=== PATIENT | male | born 1955 | race Caucasian/White ===

== ENCOUNTER 2024-07-28 18:35 | Emergency (ER) | payer MEDICARE, OTHER ==
[2024-07-28 18:58] VITALS: TEMP 97.3
--- NOTE | 2024-07-28 19:10 | ERPHSYRPT ---
- History of Present Illness Patient Subjective Stated Complaint: C/O "how I usually feel when I need a blood transfusion." Indicates he is having periods of SOB with exertion and generalized malaise. Triage Nursing Assessment: Patient brought back to ER in a W/C. He is alert and oriented. Able to transfer self from chair to bed. No SOB; speaking in full sentences. No cough. Patient is pale. Some edema present to BLE. Finger on right hand wrapped; indicates he had surgery on it earlier in the week. Physician History: Patient has a history of anemia requiring frequent transfusions. He has chronic leukemia. He says that he has been fatigued today. He got some chest pain whenever he was exerting himself. He walked about 30 feet and back so that his chest felt tight for about 10 minutes after that. It resolved. He got short of breath with that to. He says that this is not unusual for him when he gets anemic. There is been no obvious external blood loss from GI or other sources. Allergies/Adverse Reactions: doxycycline Allergy (Verified 07/28/24 18:46) hydroxychloroquine sulfate [From Plaquenil] Allergy (Verified 07/28/24 18:46) metoprolol succinate [From Toprol XL] Allergy (Verified 07/28/24 18:46) procaine Allergy (Verified 07/28/24 18:46) procaine HCl [From Novocain] Allergy (Verified 07/28/24 18:46) venom-honey bee [bee venom (honey bee)] Allergy (Verified 07/28/24 18:46) warfarin sodium [From Coumadin] Allergy (Verified 07/28/24 18:46) Hx Tetanus, Diphtheria Vaccination/Date Given: Yes Hx Influenza Vaccination/Date Given: Yes Hx Pneumococcal Vaccination/Date Given: Yes Immunizations Up to Date: Yes Travel Risk - International Travel Have you traveled outside of the country in past 3 weeks: No - Emerging Infectious Disease Are you exhibiting symptoms associated with any current EIDs: No - Review of Systems Constitutional: No Symptoms Eyes: No Symptoms Ears, Nose, & Throat: No Symptoms Respiratory: No Symptoms Cardiac: Chest Pain Abdominal/Gastrointestinal: No Symptoms Skin: No Symptoms - Past Medical History Pertinent Past Medical History: Yes Cardiac History: Arrhythmia Respiratory History: Sleep Apnea Musculoskeletal History: Fractures, Rheumatoid Arthritis GI Medical History: Diverticulitis Other Medical History: 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/hematology from [facility] (Ludivina Grover NP), Multiple compression fractures, Anemia with multiple blood tranfusions - Past Surgical History Past Surgical History: Yes Gastrointestinal: Appendectomy, Hernia Repair Musculoskeletal: Orthopedic Surgery Other Surgical History: triple arthrodesis left foot, both wrists fused, elbow and left ankle, removal of scar tissue from hernia repair - Social History Smoking Status: Never smoker Exposure to second hand smoke: No Drug Use: none Patient Lives Alone: Yes - Social Determinants of Health Will the patient participate in the screening: Yes Do you worry about a steady place to live?: No Do you have any problems with any of the following?: No known problems In the past 12 months,have you had to go without utilities?: No Transportation Issues: No Has anyone in your support network made you feel unsafe?: No Have you or anyone in your house had to go without enough: No - Nursing Vital Signs Nursing Vital Signs: Initial Vital Signs Temperature 97.3 F 07/28/24 18:40 Pulse Rate 107 H 07/28/24 18:40 Respiratory Rate 16 07/28/24 18:40 Blood Pressure 156/87 07/28/24 18:40 O2 Sat by Pulse Oximetry 97 07/28/24 18:40 Pain Scale Pain Intensity 0 - Physical Exam General Appearance: no apparent distress Eye Exam: other (Pale conjunctive a) Respiratory Exam: normal breath sounds Cardiovascular Exam: tachycardia Gastrointestinal/Abdomen Exam: soft, normal bowel sounds Skin Exam: normal color, warm, dry, pale SpO2: 97 - Course Nursing assessment & vital signs reviewed: Yes EKG Interpreted by Me: RATE, Sinus Rhythm Rhythm Strip: Rate Ordered Tests: Active Orders 24 hr Category Date Time Status EKG-ER Only STAT Care 07/28/24 19:04 Active CBC W DIFF Stat Lab 07/28/24 19:15 Completed CMP Stat Lab 07/28/24 19:15 Completed TROPONIN Q4H Lab 07/28/24 19:15 Completed TROPONIN Q4H Lab 07/28/24 23:15 Ordered TROPONIN Q4H Lab 07/29/24 03:15 Ordered Medication Summary Discontinued Medications Generic Name Dose Route Start Last Admin Trade Name Freq PRN Reason Stop Dose Admin Sodium Chloride Confirm 07/28/24 21:03 Sodium Chloride 0.9% 250 Ml Administered 07/28/24 21:04 Dose 250 mls @ ud IV .STK-MED ONE Lab/Rad Data: Laboratory Result Diagrams 07/28/24 19:15 07/28/24 19:15 Laboratory Results 07/28/24 07/28/24 07/28/24 Range/Units 19:15 19:15 19:15 WBC (4.23-9.07) x10^3/uL RBC (4.63-6.08) x10^6/uL Hgb (13.7-17.5) g/dL Hct (40.1-51.0) % MCV (79.0-92.2) fL MCH (25.7-32.2) pg MCHC (32.3-36.5) g/dL RDW (11.6-14.4) % Plt Count (163-337) x10^3/uL MPV (9.4-12.4) fL Gran % (34.0-67.9) % Immature Gran % (Auto) (0.001-0.429) % Nucleat RBC Rel Count (0.00-0.2) % Eos # (Auto) (0.04-0.54) x10^3/uL Immature Gran # (Auto) (0.001-0.031) x10^3u/L Absolute Lymphs (auto) (1.32-3.57) x10^3/uL Absolute Monos (auto) (0.30-0.82) x10^3/uL Absolute Nucleated RBC (0.00-0.012) x10^3u/L Lymphocytes % (21.8-53.1) % Monocytes % (5.3-12.2) % Eosinophils % (0.8-7.0) % Basophils % (0.2-1.2) % Absolute Granulocytes (1.78-5.38) x10^3/uL Basophils # (0.01-0.08) x10^3/uL Sodium (135-145) mmol/L Potassium (3.5-5.1) mmol/L Chloride (98-107) mmol/L Carbon Dioxide (22-30) mmol/L Anion Gap (5-15) MEQ/L BUN (9-20) mg/dL Creatinine (0.66-1.25) mg/dL Estimated GFR ML/MIN Glucose (74-106) mg/dL Calcium (8.4-10.2) mg/dL Total Bilirubin (0.2-1.3) mg/dL AST (17-59) U/L ALT (0-50) U/L Alkaline Phosphatase (38-126) U/L Troponin I 0.013 (0.000-0.033) ng/mL Serum Total Protein (6.3-8.2) g/dL Albumin (3.5-5.0) g/dL Slides for Path Review ABO Group O Rh Factor POSITIVE Antibody Screen NEGATIVE (NEGATIVE) Crossmatch COMPATIBLE (COMPATIBLE) 07/28/24 07/28/24 Range/Units 19:15 19:15 WBC 5.5 (4.23-9.07) x10^3/uL RBC 2.27 L (4.63-6.08) x10^6/uL Hgb 7.8 L (13.7-17.5) g/dL Hct 24.3 L (40.1-51.0) % MCV 107.0 H (79.0-92.2) fL MCH 34.4 H (25.7-32.2) pg MCHC 32.1 L (32.3-36.5) g/dL RDW 23.5 H (11.6-14.4) % Plt Count 250 (163-337) x10^3/uL MPV 10.0 (9.4-12.4) fL Gran % 43.2 (34.0-67.9) % Immature Gran % (Auto) 0.4 (0.001-0.429) % Nucleat RBC Rel Count 0.0 (0.00-0.2) % Eos # (Auto) 0.01 L (0.04-0.54) x10^3/uL Immature Gran # (Auto) 0.02 (0.001-0.031) x10^3u/L Absolute Lymphs (auto) 2.53 (1.32-3.57) x10^3/uL Absolute Monos (auto) 0.48 (0.30-0.82) x10^3/uL Absolute Nucleated RBC 0.00 (0.00-0.012) x10^3u/L Lymphocytes % 45.7 (21.8-53.1) % Monocytes % 8.7 (5.3-12.2) % Eosinophils % 0.2 L (0.8-7.0) % Basophils % 1.8 H (0.2-1.2) % Absolute Granulocytes 2.40 (1.78-5.38) x10^3/uL Basophils # 0.10 H (0.01-0.08) x10^3/uL Sodium 137 (135-145) mmol/L Potassium 3.9 (3.5-5.1) mmol/L Chloride 106 (98-107) mmol/L Carbon Dioxide 26 (22-30) mmol/L Anion Gap 9.2 (5-15) MEQ/L BUN 18 (9-20) mg/dL Creatinine 0.75 (0.66-1.25) mg/dL Estimated GFR 97.1 ML/MIN Glucose 130 H (74-106) mg/dL Calcium 9.1 (8.4-10.2) mg/dL Total Bilirubin 0.60 (0.2-1.3) mg/dL AST 33 (17-59) U/L ALT 35 (0-50) U/L Alkaline Phosphatase 74 (38-126) U/L Troponin I (0.000-0.033) ng/mL Serum Total Protein 6.4 (6.3-8.2) g/dL Albumin 3.7 (3.5-5.0) g/dL Slides for Path Review YES ABO Group Rh Factor Antibody Screen (NEGATIVE) Crossmatch (COMPATIBLE) - Progress Progress Note: Patient's hemoglobin was 7.8. That is a little lower than it usually is. His troponin did not come back elevated. His EKG showed no acute changes. On the differential was coronary vascular event, anemia. The patient did not have any infectious symptoms. His chest Exam was clear.His vital signs were good except for some slight tachycardia. At this time going to go ahead and transfuse him with a unit of blood. Will also repeat a troponin before he goes home 07/28/24 20:27 - Departure Departure Disposition: Home Clinical Impression: Chronic anemia Condition: Stable Critical Care Time: No Referrals: CHARLIE CEDENO NP [Primary Care Provider] - Follow up/PCP as directed
[2024-07-28 19:28] LABS: BASOPHIL % 1.8 % (0.2-1.2); Eosinophil % 0.2 % (0.8-7.0); Eosinophil (Absolute #) 0.01 x10^3/uL (0.04-0.54); Hematocrit 24.3 % (40.1-51.0); Hemoglobin 7.8 g/dL (13.7-17.5); IMMATURE GRAN # 0.02 x10^3u/L (0.001-0.031); IMMATURE GRAN % 0.4 % (0.001-0.429); Lymphocyte (Absolute #) 2.53 x10^3/uL (1.32-3.57); Lymphocytes % 45.7 % (21.8-53.1); Mean Corpuscular Hemoglobin 34.4 pg (25.7-32.2); Mean Corpuscular Hgb Concent. 32.1 g/dL (32.3-36.5); Monocyte (Absolute #) 0.48 x10^3/uL (0.30-0.82); Monocytes % 8.7 % (5.3-12.2); Neutrophil % 43.2 % (34.0-67.9); Platelet Count 250 x10^3/uL (163-337); Red Blood Count 2.27 x10^6/uL (4.63-6.08); Red Cell Distribution Width 23.5 % (11.6-14.4); White Blood Count 5.5 x10^3/uL (4.23-9.07)
[2024-07-28 19:39] LABS: ALBUMIN 3.7 g/dL (3.5-5.0); ANION GAP 9.2 MEQ/L (5-15); BILIRUBIN,TOTAL 0.6 mg/dL (0.2-1.3); Calcium 9.1 mg/dL (8.4-10.2); Creatinine 1 0.75 mg/dL (0.66-1.25); EST GLOMERULAR FILTRATION RATE 97.1 ML/MIN; Potassium 3.9 mmol/L (3.5-5.1); Total Protein 6.4 g/dL (6.3-8.2)
[2024-07-28 20:59] LABS: ABO TYPING O; Antibody Screen NEGATIVE (NEGATIVE); RH TYPING POSITIVE
[2024-07-28 21:01] LABS: CROSS MATCH (PRBC) COMPATIBLE (COMPATIBLE)
[2024-07-28] MEDS ORDERED: Sodium Chloride 0.9% 250 ML 250 ML IV ONE (21:03)
[2024-07-28 21:51] LABS: Slide Review 1 YES
[2024-07-28 22:14] VITALS: PULSE 87
[2024-07-28 23:01] VITALS: BP 152/96; RESP 32; O2SAT 97
[2024-07-28] MEDS: Sodium Chloride 0.9% 250 ML 250 ML IV SCH (23:47)
== END 2024-07-28 23:44 | disposition home or self-care (01) ==
LOC: ED 18:35
DX: D64.9 Anemia, unspecified (principal); R07.9 Chest pain, unspecified; R06.02 Shortness of breath
CPT/HCPCS: 36415; 36430; 80053; 84484; 85025; 86850; 86900; 86901; 86922; 93005; 96360; 99285; P9016; 99284

== ENCOUNTER 2024-08-27 17:43 | Emergency (ER) | payer MEDICARE, OTHER ==
--- NOTE | 2024-08-27 18:02 | ERPHSYRPT ---
- History of Present Illness Time Seen by Provider: 08/27/24 18:02 Source: patient Exam Limitations: no limitations Physician History: This is a 69-year-old white male patient who arrives by private vehicle with a concern that his anemia might be lower than usual for him. He has some shortness of breath with exertion. Patient was recently diagnosed with RSV infection. He denies chest pain. I did review labs that were performed on 08/20/2024 and 08/16/2024. The values were 8.0 and 8.4 respectively. Patient has a history of gastroesophageal reflux disease, A-fib, leukemia and chronic anemia. Activities at Onset: activity Severity of Dyspnea-Max: mild Severity of Dyspnea-Current: mild Possible Cause: frequent episodes, chronic episodes Associated Symptoms: No cough, No chest pain/discomfort, No fever, No wheezing Allergies/Adverse Reactions: doxycycline Allergy (Verified 08/27/24 17:47) hydroxychloroquine sulfate [From Plaquenil] Allergy (Verified 08/27/24 17:47) metoprolol succinate [From Toprol XL] Allergy (Verified 08/27/24 17:47) procaine Allergy (Verified 08/27/24 17:47) procaine HCl [From Novocain] Allergy (Verified 08/27/24 17:47) venom-honey bee [bee venom (honey bee)] Allergy (Verified 08/27/24 17:47) warfarin sodium [From Coumadin] Allergy (Verified 08/27/24 17:47) Home Medications: Acetaminophen 325 mg [Tylenol 325 mg] 325 mg PO Q4HPRN PRN 08/27/24 [History] Albuterol 2.5 mg/3 ml Neb [Proventil 2.5 mg/3 ml Neb] 1 dose IH Q8HPRN PRN 08/27/24 [History] Apixaban [Eliquis] 5 mg PO BID 08/27/24 [History] Cetirizine HCl [All Day Allergy Relief] 10 mg PO DAILY 08/27/24 [History] Deferasirox 2,520 mg PO DAILY 08/27/24 [History] Digoxin 250 mcg PO DAILY 08/27/24 [History] Escitalopram Oxalate [Lexapro] 10 mg PO DAILY 08/27/24 [History] Folic Acid 1 mg [Folate 1 mg] 1 tab PO DAILY 08/27/24 [History] Gabapentin [Neurontin ] 1 cap PO TID 08/27/24 [History] Hydrocodone/Acetaminophen [Hydrocodone-Acetamin 5-325 mg] 1 tab PO Q4HPRN PRN 08/27/24 [History] Leflunomide 20 mg PO DAILY 08/27/24 [History] Metolazone 2.5 mg [Zaroxolyn 2.5 MG] 5 mg PO DAILY 08/27/24 [History] Non-Formulary Drug [Non-Formulary Bulk Item] 1 dose IV UD 08/27/24 [History] Ondansetron [Ondansetron Odt] 8 mg PO Q8HPRN PRN 08/27/24 [History] Pantoprazole 40 mg [Protonix 40 mg IV] 40 mg PO DAILY 08/27/24 [History] Prednisone 5 mg [Deltasone 5 mg] 15 mg PO DAILY 08/27/24 [History] Sucralfate 1 gm [Carafate 1 GM] 1 tab PO Q6H 08/27/24 [History] Tizanidine HCl 4 mg [Zanaflex 4 MG] 1 tab PO DAILY 08/27/24 [History] Trazodone HCl 50 mg [Desyrel 50 mg] 50 mg PO HS 08/27/24 [History] Hx Tetanus, Diphtheria Vaccination/Date Given: Yes Hx Influenza Vaccination/Date Given: Yes Hx Pneumococcal Vaccination/Date Given: Yes Travel Risk - International Travel Have you traveled outside of the country in past 3 weeks: No - Emerging Infectious Disease Are you exhibiting symptoms associated with any current EIDs: No - Review of Systems Constitutional: No Symptoms Eyes: No Symptoms Ears, Nose, & Throat: No Symptoms Respiratory: Dyspnea on Exertion (KNIGHT) Cardiac: No Symptoms Abdominal/Gastrointestinal: No Symptoms Genitourinary Symptoms: No Symptoms Musculoskeletal: No Symptoms Skin: No Symptoms Neurological: No Symptoms Psychological: No Symptoms Endocrine: No Symptoms Hematologic/Lymphatic: No Symptoms Immunological/Allergic: No Symptoms All Other Systems: Reviewed and Negative - Past Medical History Pertinent Past Medical History: Yes Cardiac History: Arrhythmia Respiratory History: Sleep Apnea Musculoskeletal History: Fractures, Rheumatoid Arthritis GI Medical History: Diverticulitis 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/ hematology from [facility] (Ludivina Grover NP), Multiple compression fractures, Anemia with multiple blood tranfusions - Past Surgical History Past Surgical History: Yes Gastrointestinal: Appendectomy, Hernia Repair Musculoskeletal: Orthopedic Surgery Other Surgical History: triple arthrodesis left foot, both wrists fused, elbow and left ankle, removal of scar tissue from hernia repair - Social History Smoking Status: Never smoker Exposure to second hand smoke: No Drug Use: none Patient Lives Alone: Yes - Social Determinants of Health Will the patient participate in the screening: Yes Do you worry about a steady place to live?: No In the past 12 months,have you had to go without utilities?: No Transportation Issues: No Has anyone in your support network made you feel unsafe?: No Have you or anyone in your house had to go w/o enough food: No - Nursing Vital Signs Nursing Vital Signs: Initial Vital Signs Pulse Rate 107 H 08/27/24 17:48 Respiratory Rate 23 08/27/24 17:48 Blood Pressure 136/89 08/27/24 17:48 O2 Sat by Pulse Oximetry 96 08/27/24 17:48 Pain Scale Pain Intensity 5 - Physical Exam General Appearance: no apparent distress, alert, obese Eye Exam: PERRL/EOMI, eyes nml inspection Ears, Nose, Throat Exam: hearing grossly normal, normal ENT inspection, normal pharynx Neck Exam: normal inspection, non-tender, supple, full range of motion Respiratory Exam: normal breath sounds, lungs clear, airway intact, No chest tenderness, No respiratory distress Cardiovascular/Chest Exam: normal heart sounds, regular rate/rhythm Abdominal/Gastrointestinal Exam: soft, normal bowel sounds, No tenderness Rectal Exam: not done Extremity Exam: normal range of motion (Tip of right index finger shows dry gangrene.) Neurologic Exam: alert, oriented x 3, cooperative, neonatal critical care nurse II-XII nml as tested, normal mood/affect, nml cerebellar function, nml station & gait, sensation nml Skin Exam: normal color, warm, dry Lymphatic Exam: No adenopathy SpO2 Interpretation: normal O2 Delivery: Room Air - Course Nursing assessment & vital signs reviewed: Yes EKG Interpreted by Me: RATE (105), A-fib, NORMAL AXIS, LAFB, Right Bundle Branch Block, Other (No acute ischemia on today's twelve-lead EKG. QTc is 483) Ordered Tests: Active Orders 24 hr Category Date Time Status CHEST 1 VIEW (PORTABLE) Stat Exams 08/27/24 18:03 Taken BLOOD CULTURE Stat Lab 08/27/24 18:05 Received CBC W DIFF Stat Lab 08/27/24 17:55 Completed CMP Stat Lab 08/27/24 17:55 Completed Lactic Acid Stat Lab 08/27/24 18:08 Completed Lactic Acid Stat Lab 08/27/24 20:10 Received MAGNESIUM Stat Lab 08/27/24 17:55 Completed NT PRO BNPII Stat Lab 08/27/24 17:55 Completed TROPONIN Q4H Lab 08/27/24 17:55 Completed TROPONIN Q4H Lab 08/27/24 22:15 Ordered TROPONIN Q4H Lab 08/28/24 02:15 Ordered Medication Summary Discontinued Medications Generic Name Dose Route Start Last Admin Trade Name Halley PRN Reason Stop Dose Admin Hydrocodone Bitart/Acetaminophen 1 tab 08/27/24 19:26 08/27/24 19:31 Hydrocodone/Apap 5/325 1 Tab Tablet PO 08/27/24 19:27 1 tab SENT HOME W/ PATIENT ONE Administration Hydrocodone Bitart/Acetaminophen Confirm 08/27/24 19:29 Hydrocodone/Apap 5/325 1 Tab Tablet Administered 08/27/24 19:30 Dose 1 tab .ROUTE .STK-MED ONE Levofloxacin 500 mg 08/27/24 20:15 Levofloxacin 500 Mg Tablet PO 08/27/24 20:16 STAT ONE Lab/Rad Data: Laboratory Result Diagrams 08/27/24 17:55 08/27/24 17:55 Laboratory Results 08/27/24 08/27/24 08/27/24 Range/Units 18:08 18:05 17:55 WBC (4.23-9.07) x10^3/uL RBC (4.63-6.08) x10^6/uL Hgb (13.7-17.5) g/dL Hct (40.1-51.0) % MCV (79.0-92.2) fL MCH (25.7-32.2) pg MCHC (32.3-36.5) g/dL RDW (11.6-14.4) % Plt Count (163-337) x10^3/uL MPV (9.4-12.4) fL Gran % (34.0-67.9) % Immature Gran % (Auto) (0.001-0.429) % Nucleat RBC Rel Count (0.00-0.2) % Eos # (Auto) (0.04-0.54) x10^3/uL Immature Gran # (Auto) (0.001-0.031) x10^3u/L Absolute Lymphs (auto) (1.32-3.57) x10^3/uL Absolute Monos (auto) (0.30-0.82) x10^3/uL Absolute Nucleated RBC (0.00-0.012) x10^3u/L Lymphocytes % (21.8-53.1) % Monocytes % (5.3-12.2) % Eosinophils % (0.8-7.0) % Basophils % (0.2-1.2) % Absolute Granulocytes (1.78-5.38) x10^3/uL Basophils # (0.01-0.08) x10^3/uL Sodium (135-145) mmol/L Potassium (3.5-5.1) mmol/L Chloride (98-107) mmol/L Carbon Dioxide (22-30) mmol/L Anion Gap (5-15) MEQ/L BUN (9-20) mg/dL Creatinine (0.66-1.25) mg/dL Estimated GFR ML/MIN Glucose (74-106) mg/dL Lactic Acid 2.6 H (0.4-2.0) Calcium (8.4-10.2) mg/dL Magnesium (1.6-2.3) mg/dL Total Bilirubin (0.2-1.3) mg/dL AST (17-59) U/L ALT (0-50) U/L Alkaline Phosphatase (38-126) U/L Troponin I 0.018 (0.000-0.033) ng/mL NT-Pro-B Natriuret Pep 1760 (<300) pg/mL Serum Total Protein (6.3-8.2) g/dL Albumin (3.5-5.0) g/dL Influenza Type A Ag NEGATIVE (NEGATIVE) Influenza Type B Ag NEGATIVE (NEGATIVE) RSV (PCR) POSITIVE A (NEGATIVE) SARS-CoV-2 (PCR) NEGATIVE (NEGATIVE) Slides for Path Review 08/27/24 08/27/24 Range/Units 17:55 17:55 WBC 5.9 (4.23-9.07) x10^3/uL RBC 2.21 L (4.63-6.08) x10^6/uL Hgb 8.3 L (13.7-17.5) g/dL Hct 25.2 L (40.1-51.0) % MCV 114.0 H (79.0-92.2) fL MCH 37.6 H (25.7-32.2) pg MCHC 32.9 (32.3-36.5) g/dL RDW 25.3 H (11.6-14.4) % Plt Count 267 (163-337) x10^3/uL MPV 10.3 (9.4-12.4) fL Gran % 62.0 (34.0-67.9) % Immature Gran % (Auto) 0.3 (0.001-0.429) % Nucleat RBC Rel Count 0.0 (0.00-0.2) % Eos # (Auto) 0.01 L (0.04-0.54) x10^3/uL Immature Gran # (Auto) 0.02 (0.001-0.031) x10^3u/L Absolute Lymphs (auto) 1.81 (1.32-3.57) x10^3/uL Absolute Monos (auto) 0.34 (0.30-0.82) x10^3/uL Absolute Nucleated RBC 0.00 (0.00-0.012) x10^3u/L Lymphocytes % 30.8 (21.8-53.1) % Monocytes % 5.8 (5.3-12.2) % Eosinophils % 0.2 L (0.8-7.0) % Basophils % 0.9 (0.2-1.2) % Absolute Granulocytes 3.64 (1.78-5.38) x10^3/uL Basophils # 0.05 (0.01-0.08) x10^3/uL Sodium 139 (135-145) mmol/L Potassium 4.3 (3.5-5.1) mmol/L Chloride 107 (98-107) mmol/L Carbon Dioxide 22 (22-30) mmol/L Anion Gap 14.4 (5-15) MEQ/L BUN 17 (9-20) mg/dL Creatinine 0.74 (0.66-1.25) mg/dL Estimated GFR 97.5 ML/MIN Glucose 169 H (74-106) mg/dL Lactic Acid (0.4-2.0) Calcium 9.1 (8.4-10.2) mg/dL Magnesium 1.9 (1.6-2.3) mg/dL Total Bilirubin 0.80 (0.2-1.3) mg/dL AST 41 (17-59) U/L ALT 39 (0-50) U/L Alkaline Phosphatase 94 (38-126) U/L Troponin I (0.000-0.033) ng/mL NT-Pro-B Natriuret Pep (<300) pg/mL Serum Total Protein 6.7 (6.3-8.2) g/dL Albumin 3.8 (3.5-5.0) g/dL Influenza Type A Ag (NEGATIVE) Influenza Type B Ag (NEGATIVE) RSV (PCR) (NEGATIVE) SARS-CoV-2 (PCR) (NEGATIVE) Slides for Path Review YES - Progress Progress: improved Air Movement: good, poor Progress Note: 08/27/24 20:23 My medical decision making of the assignment of moderate complexity to this patient's medical history today is based on review of the patient's past medical history, review of the patient's medication list, review of the patient's drug allergy list, history present illness and physical findings on examination. The workup in this patient includes placement of a intravenous line, CBC, CMP, twelve-lead EKG, troponin level, BNP, chest x-ray, lactic acid level, viral swabs. Differential diagnosis includes but is not limited to CHF exacerbation, upper respiratory infection, myocardial infarction, electrolyte abnormalities, pneumonia, arrhythmia I interpreted the preliminary report of this patient's chest x-ray. Appears to me the patient might have a mild, early infiltrate versus atelectasis on both bases. I interpreted the patient's laboratory data results. The patient has chronic anemia and today's hemoglobin is higher than the hemoglobin that was performed on 08/21/2023 and approximately the same value as 08/16/2024. Patient test positive for RSV. There are no other acute, emergent medical issues in this patient. 08/27/24 20:25 Blood Culture(s) Obtained: Yes Antibiotics given: Yes Counseled pt/family regarding: lab results, diagnosis, need for follow-up, rad results Medical Desision Making - Diagnostic Testing Diagnostic test were ordered, analyzed, and reviewed by me: Yes Radiological Interpretation: Interpreted by me, Teleradiologist Report - Risk of complications The pt has a mod risk of morbidity or mortality based on: Need for prescription drug management - Departure Departure Disposition: Home Clinical Impression: Chronic anemia, Infiltrate of lung present on chest x-ray, RSV infection Condition: Stable Critical Care Time: No Referrals: GALLO DORSEY MD [Primary Care Provider] - Follow up/PCP as directed Additional Instructions: Drink plenty of fluids. Take your medications as prescribed. Call your primary care provider tomorrow, 08/28/2024, to make arrangements for follow-up appoint ment for further evaluation management. Prescriptions: Levofloxacin [Levaquin 500 MG Tablet] 500 mg PO DAILY #5 tablet
[2024-08-27 18:06] VITALS: TEMP 97.5
[2024-08-27 18:18] LABS: Absolute Neutrophil Ct (ANC) 3.64 x10^3/uL (1.78-5.38); BASOPHIL % 0.9 % (0.2-1.2); Basophil (Absolute #) 0.05 x10^3/uL (0.01-0.08); Eosinophil % 0.2 % (0.8-7.0); Eosinophil (Absolute #) 0.01 x10^3/uL (0.04-0.54); Hematocrit 25.2 % (40.1-51.0); Hemoglobin 8.3 g/dL (13.7-17.5); IMMATURE GRAN # 0.02 x10^3u/L (0.001-0.031); IMMATURE GRAN % 0.3 % (0.001-0.429); Lymphocyte (Absolute #) 1.81 x10^3/uL (1.32-3.57); Lymphocytes % 30.8 % (21.8-53.1); Mean Corpuscular Hemoglobin 37.6 pg (25.7-32.2); Mean Corpuscular Hgb Concent. 32.9 g/dL (32.3-36.5); Mean Platelet Volume 10.3 fL (9.4-12.4); Monocyte (Absolute #) 0.34 x10^3/uL (0.30-0.82); Monocytes % 5.8 % (5.3-12.2); Platelet Count 267 x10^3/uL (163-337); Red Blood Count 2.21 x10^6/uL (4.63-6.08); Red Cell Distribution Width 25.3 % (11.6-14.4); White Blood Count 5.9 x10^3/uL (4.23-9.07)
[2024-08-27 18:32] LABS: ALBUMIN 3.8 g/dL (3.5-5.0); ANION GAP 14.4 MEQ/L (5-15); BILIRUBIN,TOTAL 0.8 mg/dL (0.2-1.3); Calcium 9.1 mg/dL (8.4-10.2); Creatinine 1 0.74 mg/dL (0.66-1.25); EST GLOMERULAR FILTRATION RATE 97.5 ML/MIN; MAGNESIUM 1.9 mg/dL (1.6-2.3); Potassium 4.3 mmol/L (3.5-5.1); Total Protein 6.7 g/dL (6.3-8.2)
[2024-08-27 18:44] LABS: TROPONIN 0.018 ng/mL (0.000-0.033)
[2024-08-27 18:56] LABS: INFLUENZA A NEGATIVE (NEGATIVE); INFLUENZA B NEGATIVE (NEGATIVE); SARS-CoV-2 Xpert Express NEGATIVE (NEGATIVE)
[2024-08-27 19:01] LABS: RESPIRATORY SYNCTIAL VIRUS POSITIVE (NEGATIVE)
[2024-08-27] MEDS ORDERED: NORCO 5/325 MG ONE (19:29)
[2024-08-27] MEDS: NORCO 5/325 MG PO ONE (19:31)
[2024-08-27 20:01] LABS: Slide Review 1 YES
[2024-08-27] MEDS ORDERED: Levofloxacin 500 MG Tablet ONE (20:16)
[2024-08-27] MEDS: Levofloxacin 500 MG Tablet PO ONE (20:20)
[2024-08-27 20:39] VITALS: BP 130/88; PULSE 97; RESP 20; O2SAT 97
--- NOTE | 2024-08-28 08:51 | XRAY ---
Indication: Short of breath. Comparison: September 06, 2017 Portable chest again hyperinflated with minimal bibasilar infiltrates/atelectasis. Remaining heart and lungs unremarkable. Bony thorax intact again with osteopenia, degenerative changes, and old left rib fractures. New T6 vertebroplasty.
== END 2024-08-27 20:46 | disposition home or self-care (01) ==
LOC: ED 17:43
DX: D64.9 Anemia, unspecified (principal); R91.8 Other nonspecific abnormal finding of lung field; J06.9 Acute upper respiratory infection, unspecified; B97.4 Respiratory syncytial virus as the cause of diseases classified elsewhere; R06.02 Shortness of breath; Z79.01 Long term (current) use of anticoagulants; Z79.891 Long term (current) use of opiate analgesic; Z79.52 Long term (current) use of systemic steroids; Z79.899 Other long term (current) drug therapy
CPT/HCPCS: 0241U; 36415; 71045; 80053; 83605; 83735; 83880; 84484; 85025; 87040; 93005; 99285; 99284; A9270-GY

== ENCOUNTER 2024-09-12 18:51 | Observation (INO) | payer MEDICARE, OTHER ==
[2024-09-12 20:24] LABS: Absolute Neutrophil Ct (ANC) 1.87 x10^3/uL (1.78-5.38); BASOPHIL % 1.5 % (0.2-1.2); Basophil (Absolute #) 0.07 x10^3/uL (0.01-0.08); Eosinophil % 0.2 % (0.8-7.0); Eosinophil (Absolute #) 0.01 x10^3/uL (0.04-0.54); Hematocrit 26.3 % (40.1-51.0); Hemoglobin 8.3 g/dL (13.7-17.5); IMMATURE GRAN # 0.02 x10^3u/L (0.001-0.031); IMMATURE GRAN % 0.4 % (0.001-0.429); Lymphocyte (Absolute #) 2.17 x10^3/uL (1.32-3.57); Lymphocytes % 45.8 % (21.8-53.1); Mean Cell Volume 115.9 fL (79.0-92.2); Mean Corpuscular Hemoglobin 36.6 pg (25.7-32.2); Mean Corpuscular Hgb Concent. 31.6 g/dL (32.3-36.5); Mean Platelet Volume 10.1 fL (9.4-12.4); Monocytes % 12.7 % (5.3-12.2); Neutrophil % 39.4 % (34.0-67.9); Platelet Count 276 x10^3/uL (163-337); Red Blood Count 2.27 x10^6/uL (4.63-6.08); Red Cell Distribution Width 22.9 % (11.6-14.4); White Blood Count 4.7 x10^3/uL (4.23-9.07)
--- NOTE | 2024-09-12 20:37 | ERPHSYRPT ---
- History of Present Illness Time Seen by Provider: 09/12/24 20:32 Source: patient Exam Limitations: no limitations Patient Subjective Stated Complaint: c/o weakness and feeling tired Triage Nursing Assessment: Patient brought self to ED with c/o weakness and feeling tired. patient states that when he feels like this his blood is low. Patient states that he had RSV a few weeks ago and started to feel better and now he feels weak and lightheaded when he stands up. Patient's vitals wnl, gait steady, skin w/n/d, pulses normal, patient has a history of A. Fib, takes blood thinners, patient doesn't appear to be in any distress at this time. 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 P atient states he gets fatigued when he ambulates between rooms at his home. Patient states that he has a history of anemia which she states is secondary to his leukemia. Patient denies pain. No shortness of breath at rest. Patient feels his lungs are working well per patient. No nausea vomiting or diaphoresis. Patient voices no other complaints or concerns at this time. Portions of this note were created with voice recognition technology. There may be grammatical, spelling, punctuation or sound alike errors Timing/Duration: today Severity: moderate Modifying Factors: Improves With: nothing Associated Symptoms: denies symptoms Allergies/Adverse Reactions: doxycycline Allergy (Verified 09/12/24 19:30) hydroxychloroquine sulfate [From Plaquenil] Allergy (Verified 09/12/24 19:30) metoprolol succinate [From Toprol XL] Allergy (Verified 09/12/24 19:30) procaine Allergy (Verified 09/12/24 19:30) procaine HCl [From Novocain] Allergy (Verified 09/12/24 19:30) venom-honey bee [bee venom (honey bee)] Allergy (Verified 09/12/24 19:30) warfarin sodium [From Coumadin] Allergy (Verified 09/12/24 19:30) Home Medications: Acetaminophen 325 mg [Tylenol 325 mg] 325 mg PO Q4HPRN PRN 08/27/24 [History] Albuterol 2.5 mg/3 ml Neb [Proventil 2.5 mg/3 ml Neb] 1 dose IH Q8HPRN PRN 08/27/24 [History] Apixaban [Eliquis] 5 mg PO BID 08/27/24 [History] Cetirizine HCl [All Day Allergy Relief] 10 mg PO DAILY 08/27/24 [History] Deferasirox 2,520 mg PO DAILY 08/27/24 [History] Digoxin 250 mcg PO DAILY 08/27/24 [History] Escitalopram Oxalate [Lexapro] 10 mg PO DAILY 08/27/24 [History] Folic Acid 1 mg [Folate 1 mg] 1 tab PO DAILY 08/27/24 [History] Gabapentin [Neurontin ] 1 cap PO TID 08/27/24 [History] Hydrocodone/Acetaminophen [Hydrocodone-Acetamin 5-325 mg] 1 tab PO Q4HPRN PRN 08/27/24 [History] Leflunomide 20 mg PO DAILY 08/27/24 [History] Ondansetron [Ondansetron Odt] 8 mg PO Q8HPRN PRN 08/27/24 [History] Pantoprazole 40 mg [Protonix 40 mg IV] 40 mg PO DAILY 08/27/24 [History] Prednisone 5 mg [Deltasone 5 mg] 15 mg PO DAILY 08/27/24 [History] Sucralfate 1 gm [Carafate 1 GM] 1 tab PO Q6H 08/27/24 [History] Tizanidine HCl 4 mg [Zanaflex 4 MG] 1 tab PO DAILY 08/27/24 [History] Trazodone HCl 50 mg [Desyrel 50 mg] 50 mg PO HS 08/27/24 [History] Hx Tetanus, Diphtheria Vaccination/Date Given: No Hx Influenza Vaccination/Date Given: Yes Hx Pneumococcal Vaccination/Date Given: Yes Travel Risk - International Travel Have you traveled outside of the country in past 3 weeks: No - Emerging Infectious Disease Are you exhibiting symptoms associated with any current EIDs: No - Review of Systems Constitutional: No Symptoms, No Fever, No Chills Eyes: No Symptoms Ears, Nose, & Throat: No Symptoms Respiratory: No Symptoms, No Cough, No Dyspnea Cardiac: No Symptoms, No Chest Pain, No Edema, No Syncope Abdominal/Gastrointestinal: No Symptoms, No Abdominal Pain, No Nausea, No Vomiting, No Diarrhea Genitourinary Symptoms: No Symptoms, No Dysuria Musculoskeletal: No Symptoms, No Back Pain, No Neck Pain Skin: No Symptoms, No Rash Neurological: No Symptoms, No Dizziness, No Focal Weakness, No Sensory Changes Psychological: No Symptoms Endocrine: No Symptoms Hematologic/Lymphatic: No Symptoms Immunological/Allergic: No Symptoms All Other Systems: Reviewed and Negative - Past Medical History Pertinent Past Medical History: Yes Cardiac History: Arrhythmia Respiratory History: Sleep Apnea Musculoskeletal History: Fractures, Rheumatoid Arthritis GI Medical History: Diverticulitis Other Medical History: afib, 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 elbow and left ankle, removal of scar tissue from hernia repair, right knee replaced - Social History Smoking Status: Former smoker Exposure to second hand smoke: No Drug Use: none - Social Determinants of Health Will the patient participate in the screening: Yes Do you worry about a steady place to live?: No Do you have any problems with any of the following?: No known problems In the past 12 months,have you had to go without utilities?: No Transportation Issues: No Has anyone in your support network made you feel unsafe?: No Have you or anyone in your house had to go w/o enough food: No - Nursing Vital Signs Nursing Vital Signs: Initial Vital Signs Pulse Rate 84 09/12/24 19:14 Respiratory Rate 25 H 09/12/24 19:14 Blood Pressure 119/91 09/12/24 19:14 O2 Sat by Pulse Oximetry 97 09/12/24 19:14 Pain Scale Pain Intensity 5 - Physical Exam General Appearance: no apparent distress, alert Eye Exam: PERRL/EOMI, eyes nml inspection Ears, Nose, Throat Exam: normal ENT inspection, TMs normal, pharynx normal, moist mucous membranes Neck Exam: normal inspection, non-tender, supple, full range of motion Respiratory Exam: normal breath sounds, lungs clear, airway intact, No respiratory distress Cardiovascular Exam: regular rate/rhythm, normal heart sounds, normal peripheral pulses Gastrointestinal/Abdomen Exam: soft, normal bowel sounds, No tenderness, No mass Back Exam: normal inspection, normal range of motion, No CVA tenderness, No vertebral tenderness Extremity Exam: normal inspection, normal range of motion, pelvis stable Neurologic Exam: alert, oriented x 3, cooperative, normal mood/affect, sensation nml, No motor deficits Skin Exam: normal color, warm, dry, No rash Lymphatic Exam: No adenopathy SpO2 Interpretation: normal SpO2: 96 O2 Delivery: Room Air - Course Nursing assessment & vital signs reviewed: Yes EKG Interpreted by Me: RATE (82), A-fib, NORMAL AXIS, NORMAL INTERVALS, NORMAL QRS - Radiology Exams Chest X-ray Interpretation: Teleradiologist Report (No acute findings) Ordered Tests: Active Orders 24 hr Category Date Time Status Nursing Program Chair STAT Care 09/12/24 20:11 Active EKG-ER Only STAT Care 09/12/24 20:10 Active Pulse Oximetry (ED) STAT Care 09/12/24 20:10 Active CHEST 1 VIEW (PORTABLE) Stat Exams 09/12/24 21:35 Taken CBC W DIFF Stat Lab 09/12/24 20:20 Completed CMP Stat Lab 09/12/24 20:22 Completed MAGNESIUM Stat Lab 09/12/24 20:22 Completed NT PRO BNPII Stat Lab 09/12/24 20:22 Completed TROPONIN Q4H Lab 09/12/24 20:22 Completed TROPONIN Q4H Lab 09/13/24 00:15 Ordered TROPONIN Q4H Lab 09/13/24 04:15 Ordered Urine Triage Profile Stat Lab 09/12/24 21:33 Completed Transfer Order Routine Transfer 09/12/24 Ordered Lab/Rad Data: Laboratory Result Diagrams 09/12/24 20:20 09/12/24 20:22 Laboratory Results 09/12/24 09/12/24 09/12/24 Range/Units 21:33 20:22 20:22 WBC (4.23-9.07) x10^3/uL RBC (4.63-6.08) x10^6/uL Hgb (13.7-17.5) g/dL Hct (40.1-51.0) % MCV (79.0-92.2) fL MCH (25.7-32.2) pg MCHC (32.3-36.5) g/dL RDW (11.6-14.4) % Plt Count (163-337) x10^3/uL MPV (9.4-12.4) fL Gran % (34.0-67.9) % Immature Gran % (Auto) (0.001-0.429) % Nucleat RBC Rel Count (0.00-0.2) % Eos # (Auto) (0.04-0.54) x10^3/uL Immature Gran # (Auto) (0.001-0.031) x10^3u/L Absolute Lymphs (auto) (1.32-3.57) x10^3/uL Absolute Monos (auto) (0.30-0.82) x10^3/uL Absolute Nucleated RBC (0.00-0.012) x10^3u/L Lymphocytes % (21.8-53.1) % Monocytes % (5.3-12.2) % Eosinophils % (0.8-7.0) % Basophils % (0.2-1.2) % Absolute Granulocytes (1.78-5.38) x10^3/uL Basophils # (0.01-0.08) x10^3/uL Sodium (135-145) mmol/L Potassium (3.5-5.1) mmol/L Chloride (98-107) mmol/L Carbon Dioxide (22-30) mmol/L Anion Gap (5-15) MEQ/L BUN (9-20) mg/dL Creatinine (0.66-1.25) mg/dL Estimated GFR ML/MIN Glucose (74-106) mg/dL Calcium (8.4-10.2) mg/dL Magnesium (1.6-2.3) mg/dL Total Bilirubin (0.2-1.3) mg/dL AST (17-59) U/L ALT (0-50) U/L Alkaline Phosphatase (38-126) U/L Troponin I 0.013 (0.000-0.033) ng/mL NT-Pro-B Natriuret Pep (<300) pg/mL Serum Total Protein (6.3-8.2) g/dL Albumin (3.5-5.0) g/dL Digoxin 0.7 L (0.8-1.9) ng/mL Urine Opiates Level POSITIVE A (NEGATIVE) Ur Methadone NEGATIVE (NEGATIVE) Urine Barbiturates NEGATIVE (NEGATIVE) Ur Phencyclidine (PCP) NEGATIVE (NEGATIVE) Urine Amphetamine NEGATIVE (NEGATIVE) U Benzodiazepine Level NEGATIVE (NEGATIVE) Urine Cocaine NEGATIVE (NEGATIVE) Urine Marijuana (THC) NEGATIVE (NEGATIVE) Slides for Path Review 09/12/24 09/12/24 Range/Units 20:22 20:20 WBC 4.7 (4.23-9.07) x10^3/uL RBC 2.27 L (4.63-6.08) x10^6/uL Hgb 8.3 L (13.7-17.5) g/dL Hct 26.3 L (40.1-51.0) % MCV 115.9 H (79.0-92.2) fL MCH 36.6 H (25.7-32.2) pg MCHC 31.6 L (32.3-36.5) g/dL RDW 22.9 H (11.6-14.4) % Plt Count 276 (163-337) x10^3/uL MPV 10.1 (9.4-12.4) fL Gran % 39.4 (34.0-67.9) % Immature Gran % (Auto) 0.4 (0.001-0.429) % Nucleat RBC Rel Count 0.0 (0.00-0.2) % Eos # (Auto) 0.01 L (0.04-0.54) x10^3/uL Immature Gran # (Auto) 0.02 (0.001-0.031) x10^3u/L Absolute Lymphs (auto) 2.17 (1.32-3.57) x10^3/uL Absolute Monos (auto) 0.60 (0.30-0.82) x10^3/uL Absolute Nucleated RBC 0.00 (0.00-0.012) x10^3u/L Lymphocytes % 45.8 (21.8-53.1) % Monocytes % 12.7 H (5.3-12.2) % Eosinophils % 0.2 L (0.8-7.0) % Basophils % 1.5 H (0.2-1.2) % Absolute Granulocytes 1.87 (1.78-5.38) x10^3/uL Basophils # 0.07 (0.01-0.08) x10^3/uL Sodium 139 (135-145) mmol/L Potassium 4.3 (3.5-5.1) mmol/L Chloride 106 (98-107) mmol/L Carbon Dioxide 26 (22-30) mmol/L Anion Gap 10.6 (5-15) MEQ/L BUN 18 (9-20) mg/dL Creatinine 0.97 (0.66-1.25) mg/dL Estimated GFR 84.0 ML/MIN Glucose 138 H (74-106) mg/dL Calcium 8.8 (8.4-10.2) mg/dL Magnesium 2.0 (1.6-2.3) mg/dL Total Bilirubin 0.60 (0.2-1.3) mg/dL AST 29 (17-59) U/L ALT 32 (0-50) U/L Alkaline Phosphatase 72 (38-126) U/L Troponin I (0.000-0.033) ng/mL NT-Pro-B Natriuret Pep 1330 (<300) pg/mL Serum Total Protein 5.7 L (6.3-8.2) g/dL Albumin 3.5 (3.5-5.0) g/dL Digoxin (0.8-1.9) ng/mL Urine Opiates Level (NEGATIVE) Ur Methadone (NEGATIVE) Urine Barbiturates (NEGATIVE) Ur Phencyclidine (PCP) (NEGATIVE) Urine Amphetamine (NEGATIVE) U Benzodiazepine Level (NEGATIVE) Urine Cocaine (NEGATIVE) Urine Marijuana (THC) (NEGATIVE) Slides for Path Review YES - Progress Progress: improved Progress Note: 69-year-old male presents to emergency department for evaluation of shortness of breath. Patient has a history of LGL leukemia. Patient believes his shortness of breath is secondary to his anemia. However his anemia has been stable. Patient feels too fatigued to go home. Patient will be admitted for further evaluation and treatment. Case discussed with accepts admission to observation at 9:42 PM. Plan of care discussed with patient. He agrees to admission at [facility] for further evaluation and treatment. Of note patient's hemoglobin today is 8.3. It has been stable all m onth. Chest x-ray shows no acute findings. Portions of this note were created with voice recognition technology. There may be grammatical, spelling, punctuation or sound alike errors Complexity of problem addressed is moderate acute complicated. No critical care time. Complexity of data reviewed analyzes extensive. Test ordered chest reviewed results analyzed and correlated clinically with history and physical exam. Management discussed with hospitalist who accepts admission to [facility]. Risk of complication and or risk of morbidity/mortality of patient management is high. Patient requires hospitalization for further evaluation and treatment. Vital stable. Time spent to admit patient approximately 20 minutes. Plan of care established for shared decision making. No social determinants of health present to impede follow-up. Portions of this note were created with voice recognition technology. There may be grammatical, spelling, punctuation or sound alike errors 09/12/24 22:34 09/12/24 22:35 Counseled pt/family regarding: lab results, diagnosis, need for follow-up - Departure Departure Disposition: Observation Clinical Impression: Chronic atrial fibrillation, Fatigue Condition: Stable Critical Care Time: No Referrals: GALLO DORSEY MD [Primary Care Provider] - Follow up/PCP as directed
[2024-09-12 20:48] LABS: ALBUMIN 3.5 g/dL (3.5-5.0); ANION GAP 10.6 MEQ/L (5-15); BILIRUBIN,TOTAL 0.6 mg/dL (0.2-1.3); Calcium 8.8 mg/dL (8.4-10.2); Creatinine 1 0.97 mg/dL (0.66-1.25); Potassium 4.3 mmol/L (3.5-5.1); Total Protein 5.7 g/dL (6.3-8.2)
[2024-09-12 21:10] LABS: Slide Review 1 YES
[2024-09-12 21:57] LABS: Amphetamine,Urine NEGATIVE (NEGATIVE); Barbiturate,Urine NEGATIVE (NEGATIVE); Benzodiazepine,Urine NEGATIVE (NEGATIVE); Cocaine,Urine NEGATIVE (NEGATIVE); Methadone,Urine NEGATIVE (NEGATIVE); Opiate,Urine POSITIVE (NEGATIVE); PCP,Urine NEGATIVE (NEGATIVE); THC,Urine NEGATIVE (NEGATIVE)
[2024-09-12] MEDS ORDERED: PROVENTIL 2.5 MG/3 ML NEB IH PRN (23:02)
[2024-09-12] MEDS ORDERED: TYLENOL 325 MG PO PRN (23:02)
[2024-09-12] MEDS ORDERED: Zofran 4 MG/2 ML VIAL IV PRN (23:05)
--- NOTE | 2024-09-12 23:23 | PCM.HP ---
History of Present Illness - Chief Complaint Chief Complaint: Generalized weakness/fatigue Date: 09/12/24 History of Present Illness: is a 69 year old male with a history of LGL leukemia (receives his care by Dr. Guallpa at [facility]] and atrial fibrillation presents to our ED for evaluation of fatigue. Patient states he gets fatigued when he ambulates between rooms at his home. Patient states that he has a history of anemia which she states is secondary to his leukemia, but it was noted in the ED that his hemoglobin was essentially at baseline. Patient denies pain. No shortness of breath at rest. No nausea vomiting or diaphoresis. Patient voices no other complaints or concerns at this time. He states that he has not had any recent changes to his medications. He has been on prednisone for years, without any recent dose changes or missed doses; he denies ever being diagnosed with adrenal insufficiency. - Review of Systems Constitutional: Fatigue Eyes: No Symptoms Ears, Nose, & Throat: No Symptoms Respiratory: No Symptoms Cardiac: No Symptoms Abdominal/Gastrointestinal: No Symptoms Genitourinary Symptoms: No Symptoms Musculoskeletal: No Symptoms Skin: No Symptoms Neurological: No Symptoms Psychological: No Symptoms Endocrine: No Symptoms Hematologic/Lymphatic: No Symptoms Immunological/Allergic: No Symptoms All Other Systems: Reviewed and Negative Medications & Allergies Home Medications: Home Medication List Acetaminophen 325 mg [Tylenol 325 mg] 325 mg PO Q4HPRN PRN 08/27/24 [History Confirmed 09/12/24] Albuterol 2.5 mg/3 ml Neb [Proventil 2.5 mg/3 ml Neb] 1 dose IH Q8HPRN PRN 08/27/24 [History Confirmed 09/12/24] Apixaban [Eliquis] 5 mg PO BID 08/27/24 [History Confirmed 09/12/24] Cetirizine HCl [All Day Allergy Relief] 10 mg PO DAILY 08/27/24 [History Confirmed 09/12/24] Deferasirox 2,520 mg PO DAILY 08/27/24 [History Confirmed 09/12/24] Digoxin 250 mcg PO DAILY 08/27/24 [History Confirmed 09/12/24] Escitalopram Oxalate [Lexapro] 10 mg PO DAILY 08/27/24 [History Confirmed 09/12/24] Folic Acid 1 mg [Folate 1 mg] 1 tab PO DAILY 08/27/24 [History Confirmed 09/12/24] Gabapentin [Neurontin ] 1 cap PO TID 08/27/24 [History Confirmed 09/12/24] Hydrocodone/Acetaminophen [Hydrocodone-Acetamin 5-325 mg] 1 tab PO Q4HPRN PRN 08/27/24 [History Confirmed 09/12/24] Leflunomide 20 mg PO DAILY 08/27/24 [History Confirmed 09/12/24] Ondansetron [Ondansetron Odt] 8 mg PO Q8HPRN PRN 08/27/24 [History Confirmed 09/12/24] Pantoprazole 40 mg [Protonix 40 mg IV] 40 mg PO DAILY 08/27/24 [History Confirmed 09/12/24] Prednisone 5 mg [Deltasone 5 mg] 15 mg PO DAILY 08/27/24 [History Confirmed 09/12/24] Sucralfate 1 gm [Carafate 1 GM] 1 tab PO Q6H 08/27/24 [History Confirmed 09/12/24] Tizanidine HCl 4 mg [Zanaflex 4 MG] 1 tab PO DAILY 08/27/24 [History Confirmed 09/12/24] Trazodone HCl 50 mg [Desyrel 50 mg] 50 mg PO HS 08/27/24 [History Confirmed 09/12/24] Allergies/Adverse Reactions: Allergies Allergy/AdvReac Type Severity Reaction Status Date / Time doxycycline Allergy Verified 09/12/24 19:30 hydroxychloroquine sulfate Allergy Verified 09/12/24 19:30 [From Plaquenil] metoprolol succinate Allergy Verified 09/12/24 19:30 [From Toprol XL] procaine Allergy Verified 09/12/24 19:30 procaine HCl [From Novocain] Allergy Verified 09/12/24 19:30 venom-honey bee Allergy Verified 09/12/24 19:30 [bee venom (honey bee)] warfarin sodium Allergy Verified 09/12/24 19:30 [From Coumadin] - Past Medical History Past Medical History: Yes Cardiac History: Arrhythmia Respiratory History: Sleep Apnea Musculoskelatal History: Fractures, Rheumatoid Arthritis GI Medical History: Diverticulitis Comment: afib, 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 elbow and left ankle, removal of scar tissue from hernia repair, right knee replaced Significant Family History: no pertinent family hx - Social History Smoking Status: Former smoker Exposure to second hand smoke: No Alcohol: None Drug Use: none - Social Determinants of Health Will the patient participate in the screening: Yes Do you worry about a steady place to live?: No Do you have any problems with any of the following?: No known problems In the past 12 months,have you had to go without utilities?: No Have you or anyone in your house had to go without enough: No Transportation Issues: No Has anyone in your support network made you feel unsafe?: No - Physical Exam Vital Signs: Vital Signs - 24 hr Temp Pulse Resp BP BP Pulse Ox 09/12/24 22:36 96 09/12/24 22:00 98 H 22 104/75 97 09/12/24 21:30 80 19 111/74 96 09/12/24 21:00 97 H 20 142/98 94 L 09/12/24 20:31 94 H 17 141/108 96 09/12/24 20:15 96 09/12/24 20:00 79 24 107/81 96 09/12/24 19:30 98.7 F 90 22 126/81 119/91 95 09/12/24 19:14 84 25 H 119/91 97 General Appearance: no apparent distress, alert Neurologic Exam: alert, oriented x 3, cooperative, 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 level 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 II-XII nml as tested, normal mood/affect, nml cerebellar function Eye Exam: PERRL/EOMI, eyes nml inspection Ears, Nose, Throat Exam: normal ENT inspection Neck Exam: normal inspection, non-tender, supple, full range of motion Respiratory Exam: normal breath sounds, lungs clear, airway intact Cardiovascular Exam: regular rate/rhythm, normal heart sounds Gastrointestinal/Abdomen Exam: soft, normal bowel sounds Back Exam: normal range of motion Extremity Exam: normal inspection, normal range of motion Skin Exam: normal color Results - Labs Lab/Micro Results: Lab Results-Last 24 Hours 09/12/24 09/12/24 09/12/24 Range/Units 20:20 20:22 20:22 WBC 4.7 (4.23-9.07) x10^3/uL RBC 2.27 L (4.63-6.08) x10^6/uL Hgb 8.3 L (13.7-17.5) g/dL Hct 26.3 L (40.1-51.0) % MCV 115.9 H (79.0-92.2) fL MCH 36.6 H (25.7-32.2) pg MCHC 31.6 L (32.3-36.5) g/dL RDW 22.9 H (11.6-14.4) % Plt Count 276 (163-337) x10^3/uL MPV 10.1 (9.4-12.4) fL Gran % 39.4 (34.0-67.9) % Immature Gran % (Auto) 0.4 (0.001-0.429) % Nucleat RBC Rel Count 0.0 (0.00-0.2) % Eos # (Auto) 0.01 L (0.04-0.54) x10^3/uL Immature Gran # (Auto) 0.02 (0.001-0.031) x10^3u/L Absolute Lymphs (auto) 2.17 (1.32-3.57) x10^3/uL Absolute Monos (auto) 0.60 (0.30-0.82) x10^3/uL Absolute Nucleated RBC 0.00 (0.00-0.012) x10^3u/L Lymphocytes % 45.8 (21.8-53.1) % Monocytes % 12.7 H (5.3-12.2) % Eosinophils % 0.2 L (0.8-7.0) % Basophils % 1.5 H (0.2-1.2) % Absolute Granulocytes 1.87 (1.78-5.38) x10^3/uL Basophils # 0.07 (0.01-0.08) x10^3/uL Sodium 139 (135-145) mmol/L Potassium 4.3 (3.5-5.1) mmol/L Chloride 106 (98-107) mmol/L Carbon Dioxide 26 (22-30) mmol/L Anion Gap 10.6 (5-15) MEQ/L BUN 18 (9-20) mg/dL Creatinine 0.97 (0.66-1.25) mg/dL Estimated GFR 84.0 ML/MIN Glucose 138 H (74-106) mg/dL Calcium 8.8 (8.4-10.2) mg/dL Magnesium 2.0 (1.6-2.3) mg/dL Total Bilirubin 0.60 (0.2-1.3) mg/dL AST 29 (17-59) U/L ALT 32 (0-50) U/L Alkaline Phosphatase 72 (38-126) U/L Troponin I 0.013 (0.000-0.033) ng/mL NT-Pro-B Natriuret Pep 1330 (<300) pg/mL Serum Total Protein 5.7 L (6.3-8.2) g/dL Albumin 3.5 (3.5-5.0) g/dL Digoxin (0.8-1.9) ng/mL Urine Opiates Level (NEGATIVE) Ur Methadone (NEGATIVE) Urine Barbiturates (NEGATIVE) Ur Phencyclidine (PCP) (NEGATIVE) Urine Amphetamine (NEGATIVE) U Benzodiazepine Level (NEGATIVE) Urine Cocaine (NEGATIVE) Urine Marijuana (THC) (NEGATIVE) Slides for Path Review YES 09/12/24 09/12/24 Range/Units 20:22 21:33 WBC (4.23-9.07) x10^3/uL RBC (4.63-6.08) x10^6/uL Hgb (13.7-17.5) g/dL Hct (40.1-51.0) % MCV (79.0-92.2) fL MCH (25.7-32.2) pg MCHC (32.3-36.5) g/dL RDW (11.6-14.4) % Plt Count (163-337) x10^3/uL MPV (9.4-12.4) fL Gran % (34.0-67.9) % Immature Gran % (Auto) (0.001-0.429) % Nucleat RBC Rel Count (0.00-0.2) % Eos # (Auto) (0.04-0.54) x10^3/uL Immature Gran # (Auto) (0.001-0.031) x10^3u/L Absolute Lymphs (auto) (1.32-3.57) x10^3/uL Absolute Monos (auto) (0.30-0.82) x10^3/uL Absolute Nucleated RBC (0.00-0.012) x10^3u/L Lymphocytes % (21.8-53.1) % Monocytes % (5.3-12.2) % Eosinophils % (0.8-7.0) % Basophils % (0.2-1.2) % Absolute Granulocytes (1.78-5.38) x10^3/uL Basophils # (0.01-0.08) x10^3/uL Sodium (135-145) mmol/L Potassium (3.5-5.1) mmol/L Chloride (98-107) mmol/L Carbon Dioxide (22-30) mmol/L Anion Gap (5-15) MEQ/L BUN (9-20) mg/dL Creatinine (0.66-1.25) mg/dL Estimated GFR ML/MIN Glucose (74-106) mg/dL Calcium (8.4-10.2) mg/dL Magnesium (1.6-2.3) mg/dL Total Bilirubin (0.2-1.3) mg/dL AST (17-59) U/L ALT (0-50) U/L Alkaline Phosphatase (38-126) U/L Troponin I (0.000-0.033) ng/mL NT-Pro-B Natriuret Pep (<300) pg/mL Serum Total Protein (6.3-8.2) g/dL Albumin (3.5-5.0) g/dL Digoxin 0.7 L (0.8-1.9) ng/mL Urine Opiates Level POSITIVE A (NEGATIVE) Ur Methadone NEGATIVE (NEGATIVE) Urine Barbiturates NEGATIVE (NEGATIVE) Ur Phencyclidine (PCP) NEGATIVE (NEGATIVE) Urine Amphetamine NEGATIVE (NEGATIVE) U Benzodiazepine Level NEGATIVE (NEGATIVE) Urine Cocaine NEGATIVE (NEGATIVE) Urine Marijuana (THC) NEGATIVE (NEGATIVE) Slides for Path Review - Radiology Impressions Radiology Exams & Impressions: Radiology Procedures Category Date Time Status CHEST 1 VIEW (PORTABLE) Stat Exams 09/12/24 21:35 Taken Assessment/Plan (1) Fatigue Current Visit: Yes Status: Acute Assessment & Plan: Unclear etiology. Check TSH, A1c, AM cortisol (discussed below), CPK. No recent med changes. Anemia is chronic and at baseline. No evidence of dehydration. Check AM orthostatics. PT eval. Code(s): R53.83 - OTHER FATIGUE (2) Large granular lymphocytic leukemia Current Visit: Yes Status: Acute Assessment & Plan: Follows with Dr. Guallpa in [place]. Code(s): C91.Z0 - OTHER LYMPHOID LEUKEMIA NOT HAVING ACHIEVED REMISSION (3) Anemia Current Visit: Yes Status: Acute Assessment & Plan: Follow counts. No indication for transfusion at this time. Hemoglobin baseline is around 8. Code(s): D64.9 - ANEMIA, UNSPECIFIED (4) Chronic steroid use Current Visit: Yes Status: Acute Assessment & Plan: No recent change in prednisone. However, the patient may have a component of adrenal insuffciency. Will screen with a 7am timed cortisol. If low, the patient would require an endocrinology referral for a miguel stim. Code(s): QHH5165 - (5) Chronic atrial fibrillation Current Visit: Yes Status: Acute Assessment & Plan: Continue current regimen. Follows with Dr. Gilliland. Not in RVR. Rate controlled. Not likely the etiology of patient's fatigue. Code(s): I48.20 - CHRONIC ATRIAL FIBRILLATION, UNSPECIFIED Telemedicine Encounter - Telemedicine Encounter Telemedicine Encounter: "The entirety of this encounter was performed via Telemedicine" This visit was performed using real-time audio and video connection between my location and thepatients locationwith the assistance of a surrogateat the patients location. Written or verbal consent was obtained from the patient/guardian to perform this visit usingYoyotelemedicine technology. Any patient questions regarding the telemedicine interaction were a nswered. Please note that this admission required 43 minutes to complete.
[2024-09-13] MEDS: Neurontin PO SCH (00:57)
[2024-09-13] MEDS: DESYREL 50 MG PO ONE (00:57)
[2024-09-13] MEDS: ELIQUIS 2.5 MG TABLET PO ONE (00:57)
[2024-09-13] MEDS: NORCO 5/325 MG PO PRN (00:57)
[2024-09-13 04:34] VITALS: RESP 20
[2024-09-13 05:34] LABS: Absolute Neutrophil Ct (ANC) 1.11 x10^3/uL (1.78-5.38); BASOPHIL % 1.4 % (0.2-1.2); Basophil (Absolute #) 0.07 x10^3/uL (0.01-0.08); Eosinophil % 1.4 % (0.8-7.0); Eosinophil (Absolute #) 0.07 x10^3/uL (0.04-0.54); Hematocrit 23.2 % (40.1-51.0); Hemoglobin 7.3 g/dL (13.7-17.5); IMMATURE GRAN # 0.03 x10^3u/L (0.001-0.031); IMMATURE GRAN % 0.6 % (0.001-0.429); Lymphocyte (Absolute #) 3.01 x10^3/uL (1.32-3.57); Lymphocytes % 59.6 % (21.8-53.1); Mean Corpuscular Hemoglobin 36.5 pg (25.7-32.2); Mean Corpuscular Hgb Concent. 31.5 g/dL (32.3-36.5); Mean Platelet Volume 9.9 fL (9.4-12.4); Monocyte (Absolute #) 0.76 x10^3/uL (0.30-0.82); Platelet Count 233 x10^3/uL (163-337); Red Cell Distribution Width 22.7 % (11.6-14.4); White Blood Count 5.1 x10^3/uL (4.23-9.07)
[2024-09-13 06:37] LABS: Slide Review 1 YES
[2024-09-13 07:22] LABS: ANION GAP 8.1 MEQ/L (5-15); Calcium 8.4 mg/dL (8.4-10.2); Creatinine 1 0.73 mg/dL (0.66-1.25); EST GLOMERULAR FILTRATION RATE 97.9 ML/MIN; PREALBUMIN 20.64 mg/dL (17.6-36.0); Potassium 3.8 mmol/L (3.5-5.1)
[2024-09-13] MEDS ORDERED: MEDICATION INTERVENTION MC SCH ×2 (07:30)
[2024-09-13] MEDS: Carafate 1 GM PO SCH (08:04)
[2024-09-13 08:44] VITALS: BP 127/75; PULSE 85; TEMP 96.9; O2SAT 95
--- NOTE | 2024-09-13 08:45 | XRAY ---
Indication: Fatigue. Comparison: August 27, 2024 Portable chest again demonstrates minimal left base subsegmental atelectasis/scarring. Remaining heart and lungs unremarkable. Bony thorax intact again with osteopenia, degenerative changes, old left rib fractures, and T6 vertebroplasty. No new/acute findings.
[2024-09-13] MEDS: Lanoxin 0.125MG TABLET PO SCH (09:23)
[2024-09-13] MEDS: ELIQUIS 2.5 MG TABLET PO SCH (09:23)
[2024-09-13] MEDS: DELTASONE 5 MG PO SCH (09:23)
[2024-09-13] MEDS: Lexapro PO SCH (09:24)
[2024-09-13] MEDS: FOLATE 1 MG PO SCH (09:24)
[2024-09-13] MEDS: Protonix 40MG Tablet PO SCH (09:24)
[2024-09-13] MEDS: Zanaflex 4 MG PO SCH (09:27)
[2024-09-13] MEDS: CLARITIN 10 MG PO SCH (09:34)
--- NOTE | 2024-09-13 09:46 | PCM.DS ---
Discharge Summary Date of Admission: 09/12/24 22:49 Date of Discharge: 09/13/24 Admitting Physician: FELIBERTO PEREZ MD Primary Care Provider: GALLO THOMAS MD Allergies Allergies doxycycline Allergy (Verified 09/12/24 19:30) hydroxychloroquine sulfate [From Plaquenil] Allergy (Verified 09/12/24 19:30) metoprolol succinate [From Toprol XL] Allergy (Verified 09/12/24 19:30) procaine Allergy (Verified 09/12/24 19:30) procaine HCl [From Novocain] Allergy (Verified 09/12/24 19:30) venom-honey bee [bee venom (honey bee)] Allergy (Verified 09/12/24 19:30) warfarin sodium [From Coumadin] Allergy (Verified 09/12/24 19:30) Hospital Summary - Hospital Course Hospital Course: is a 69 year old male with a history of LGL leukemia (receives his care by Dr. Guallpa at [facility]] and atrial fibrillation presents to our ED for evaluation of fatigue. Patient states he gets fatigued when he ambulates between rooms at his home. Patient states that he has a history of anemia which she states is secondary to his leukemia, but it was noted in the ED that his hemoglobin was essentially at baseline. Patient denies pain. No s hortness of breath at rest. No nausea vomiting or diaphoresis. Patient voices no other complaints or concerns at this time. He states that he has not had any recent changes to his medications. He has been on prednisone for years, without any recent dose changes or missed doses; he denies ever being diagnosed with adrenal insufficiency. Today Hgb 7.3. Orthostats are nonconcerning. Pt wants to leave today as he has an appointment at 10:30 with ortho for an infected finger. He also has an appointment with Rheumatology this afternoon and needs to leave. He denies CP, SOB, abd. pain, N/V/D. He will need to f/u with PCP for labs as he will likely need OP transfusions. Case management setting up OP lab order with Dr. Thomas to recheck HGB tomorrow. Case management discussed case with Dr. Roy and he explained that if pt's hgb < 8 per oncology he is receive 2 units of PRBC. However, pt does not want to miss any of his appointments. This was again discussed by CM with Dr. Thomas and he agrees to order 2 units PRBC tomorrow OP. - Vitals & Intake/Output Vital Signs: Vital Signs Temperature 96.9 F 09/13/24 08:00 Pulse Rate 85 09/13/24 08:00 Respiratory Rate 20 09/13/24 08:00 Blood Pressure 127/75 09/13/24 08:00 O2 Sat by Pulse Oximetry 95 09/13/24 08:00 Intake & Output: Intake & Output 09/10/24 09/11/24 09/12/24 09/13/24 11:59 11:59 11:59 11:59 Intake Total 120 Balance 120 Weight 112.3 kg - Lab Result Diagrams: 09/13/24 05:11 09/13/24 05:11 Lab Results-Last 24 Hrs: Lab Results-Last 24 Hours 09/12/24 09/12/24 09/12/24 Range/Units 20:20 20:22 20:22 WBC 4.7 (4.23-9.07) x10^3/uL RBC 2.27 L (4.63-6.08) x10^6/uL Hgb 8.3 L (13.7-17.5) g/dL Hct 26.3 L (40.1-51.0) % MCV 115.9 H (79.0-92.2) fL MCH 36.6 H (25.7-32.2) pg MCHC 31.6 L (32.3-36.5) g/dL RDW 22.9 H (11.6-14.4) % Plt Count 276 (163-337) x10^3/uL MPV 10.1 (9.4-12.4) fL Gran % 39.4 (34.0-67.9) % Immature Gran % (Auto) 0.4 (0.001-0.429) % Nucleat RBC Rel Count 0.0 (0.00-0.2) % Eos # (Auto) 0.01 L (0.04-0.54) x10^3/uL Immature Gran # (Auto) 0.02 (0.001-0.031) x10^3u/L Absolute Lymphs (auto) 2.17 (1.32-3.57) x10^3/uL Absolute Monos (auto) 0.60 (0.30-0.82) x10^3/uL Absolute Nucleated RBC 0.00 (0.00-0.012) x10^3u/L Lymphocytes % 45.8 (21.8-53.1) % Monocytes % 12.7 H (5.3-12.2) % Eosinophils % 0.2 L (0.8-7.0) % Basophils % 1.5 H (0.2-1.2) % Absolute Granulocytes 1.87 (1.78-5.38) x10^3/uL Basophils # 0.07 (0.01-0.08) x10^3/uL Sodium 139 (135-145) mmol/L Potassium 4.3 (3.5-5.1) mmol/L Chloride 106 (98-107) mmol/L Carbon Dioxide 26 (22-30) mmol/L Anion Gap 10.6 (5-15) MEQ/L BUN 18 (9-20) mg/dL Creatinine 0.97 (0.66-1.25) mg/dL Estimated GFR 84.0 ML/MIN Glucose 138 H (74-106) mg/dL Calcium 8.8 (8.4-10.2) mg/dL Magnesium 2.0 (1.6-2.3) mg/dL Total Bilirubin 0.60 (0.2-1.3) mg/dL AST 29 (17-59) U/L ALT 32 (0-50) U/L Alkaline Phosphatase 72 (38-126) U/L Creatine Kinase (55-170) U/L Troponin I 0.013 (0.000-0.033) ng/mL NT-Pro-B Natriuret Pep 1330 (<300) pg/mL Serum Total Protein 5.7 L (6.3-8.2) g/dL Albumin 3.5 (3.5-5.0) g/dL Prealbumin (17.6-36.0) mg/dL Digoxin (0.8-1.9) ng/mL Urine Opiates Level (NEGATIVE) Ur Methadone (NEGATIVE) Urine Barbiturates (NEGATIVE) Ur Phencyclidine (PCP) (NEGATIVE) Urine Amphetamine (NEGATIVE) U Benzodiazepine Level (NEGATIVE) Urine Cocaine (NEGATIVE) Urine Marijuana (THC) (NEGATIVE) Slides for Path Review YES 09/12/24 09/12/24 09/13/24 Range/Units 20:22 21:33 00:30 WBC (4.23-9.07) x10^3/uL RBC (4.63-6.08) x10^6/uL Hgb (13.7-17.5) g/dL Hct (40.1-51.0) % MCV (79.0-92.2) fL MCH (25.7-32.2) pg MCHC (32.3-36.5) g/dL RDW (11.6-14.4) % Plt Count (163-337) x10^3/uL MPV (9.4-12.4) fL Gran % (34.0-67.9) % Immature Gran % (Auto) (0.001-0.429) % Nucleat RBC Rel Count (0.00-0.2) % Eos # (Auto) (0.04-0.54) x10^3/uL Immature Gran # (Auto) (0.001-0.031) x10^3u/L Absolute Lymphs (auto) (1.32-3.57) x10^3/uL Absolute Monos (auto) (0.30-0.82) x10^3/uL Absolute Nucleated RBC (0.00-0.012) x10^3u/L Lymphocytes % (21.8-53.1) % Monocytes % (5.3-12.2) % Eosinophils % (0.8-7.0) % Basophils % (0.2-1.2) % Absolute Granulocytes (1.78-5.38) x10^3/uL Basophils # (0.01-0.08) x10^3/uL Sodium (135-145) mmol/L Potassium (3.5-5.1) mmol/L Chloride (98-107) mmol/L Carbon Dioxide (22-30) mmol/L Anion Gap (5-15) MEQ/L BUN (9-20) mg/dL Creatinine (0.66-1.25) mg/dL Estimated GFR ML/MIN Glucose (74-106) mg/dL Calcium (8.4-10.2) mg/dL Magnesium (1.6-2.3) mg/dL Total Bilirubin (0.2-1.3) mg/dL AST (17-59) U/L ALT (0-50) U/L Alkaline Phosphatase (38-126) U/L Creatine Kinase (55-170) U/L Troponin I 0.016 (0.000-0.033) ng/mL NT-Pro-B Natriuret Pep (<300) pg/mL Serum Total Protein (6.3-8.2) g/dL Albumin (3.5-5.0) g/dL Prealbumin (17.6-36.0) mg/dL Digoxin 0.7 L (0.8-1.9) ng/mL Urine Opiates Level POSITIVE A (NEGATIVE) Ur Methadone NEGATIVE (NEGATIVE) Urine Barbiturates NEGATIVE (NEGATIVE) Ur Phencyclidine (PCP) NEGATIVE (NEGATIVE) Urine Amphetamine NEGATIVE (NEGATIVE) U Benzodiazepine Level NEGATIVE (NEGATIVE) Urine Cocaine NEGATIVE (NEGATIVE) Urine Marijuana (THC) NEGATIVE (NEGATIVE) Slides for Path Review 09/13/24 09/13/24 09/13/24 Range/Units 05:11 05:11 05:11 WBC 5.1 (4.23-9.07) x10^3/uL RBC 2.00 L (4.63-6.08) x10^6/uL Hgb 7.3 L (13.7-17.5) g/dL Hct 23.2 L (40.1-51.0) % MCV 116.0 H (79.0-92.2) fL MCH 36.5 H (25.7-32.2) pg MCHC 31.5 L (32.3-36.5) g/dL RDW 22.7 H (11.6-14.4) % Plt Count 233 (163-337) x10^3/uL MPV 9.9 (9.4-12.4) fL Gran % 22.0 L (34.0-67.9) % Immature Gran % (Auto) 0.6 H (0.001-0.429) % Nucleat RBC Rel Count 0.0 (0.00-0.2) % Eos # (Auto) 0.07 (0.04-0.54) x10^3/uL Immature Gran # (Auto) 0.03 (0.001-0.031) x10^3u/L Absolute Lymphs (auto) 3.01 (1.32-3.57) x10^3/uL Absolute Monos (auto) 0.76 (0.30-0.82) x10^3/uL Absolute Nucleated RBC 0.00 (0.00-0.012) x10^3u/L Lymphocytes % 59.6 H (21.8-53.1) % Monocytes % 15.0 H (5.3-12.2) % Eosinophils % 1.4 (0.8-7.0) % Basophils % 1.4 H (0.2-1.2) % Absolute Granulocytes 1.11 L (1.78-5.38) x10^3/uL Basophils # 0.07 (0.01-0.08) x10^3/uL Sodium 139 (135-145) mmol/L Potassium 3.8 (3.5-5.1) mmol/L Chloride 108 H (98-107) mmol/L Carbon Dioxide 27 (22-30) mmol/L Anion Gap 8.1 (5-15) MEQ/L BUN 17 (9-20) mg/dL Creatinine 0.73 (0.66-1.25) mg/dL Estimated GFR 97.9 ML/MIN Glucose 91 (74-106) mg/dL Calcium 8.4 (8.4-10.2) mg/dL Magnesium (1.6-2.3) mg/dL Total Bilirubin (0.2-1.3) mg/dL AST (17-59) U/L ALT (0-50) U/L Alkaline Phosphatase (38-126) U/L Creatine Kinase 24 L (55-170) U/L Troponin I 0.016 (0.000-0.033) ng/mL NT-Pro-B Natriuret Pep (<300) pg/mL Serum Total Protein (6.3-8.2) g/dL Albumin (3.5-5.0) g/dL Prealbumin 20.64 (17.6-36.0) mg/dL Digoxin (0.8-1.9) ng/mL Urine Opiates Level (NEGATIVE) Ur Methadone (NEGATIVE) Urine Barbiturates (NEGATIVE) Ur Phencyclidine (PCP) (NEGATIVE) Urine Amphetamine (NEGATIVE) U Benzodiazepine Level (NEGATIVE) Urine Cocaine (NEGATIVE) Urine Marijuana (THC) (NEGATIVE) Slides for Path Review YES - Radiology Exams Ordered Rad Exams-Entire Visit: Radiology Procedures Category Date Time Status CHEST 1 VIEW (PORTABLE) Stat Exams 09/12/24 21:35 Completed - Procedures and Test Procedures and Tests throughout Hospitalization: Therapy Orders & Screens 09/12/24 23:05 PT Eval & Treat (MD Order) ONCE Reason for Eval:: severe weakness Diagnosis: Generalized weakness/fatigue 09/13/24 00:17 RT Screen per Nursing Assess ONCE Comment: Protocol Order Physician Instructions: Greater than 3 points order RT Admission Screen Reason For Exam: Triggered on Admission Diagnosis: Generalized weakness/fatigue Diagnosis: Generalized weakness/fatigue Pneumonia: No Home O2: Yes Asthma: No CHF: No Home CPAP/BIPAP: Yes Home Nebs/MDI: Yes Total Points: 15 09/13/24 01:30 BiPap/CPAP ROUTINE Comment: per home settings Diagnosis: Generalized weakness/fatigue Respiratory Therapy Consult ONCE Comment: Reason For Exam: Diagnosis: Generalized weakness/fatigue 09/13/24 01:31 Oxygen Nasal Cannula 2 lpm Comment: Diagnosis: Generalized weakness/fatigue 09/13/24 01:32 Respiratory Therapy Assessment DAILY Comment: Diagnosis: Generalized weakness/fatigue 09/13/24 07:30 OT Screen per Nursing Assess ONCE Comment: Protocol Order Physician Instructions: Greater than 3 points order OT Admission Screening Reason For Exam: Triggered on Admission Diagnosis: Generalized weakness/fatigue Open Wound/Cellutlitis/Pressure Ulcers: Yes Acute Fx/ORIF/Change in wt bearing status: No Severe MUSCULOSKELETAL pain: No ADL Dysfunction: No Acute CVA w/Hemiparesis/Hemiplegia: No Decreased Functional Mobility/Strength: Yes Sprain/Strain: No Acute Post-op Mobility Dysfunction: No Total Points: 6 PT Screen per Nursing Assess ONCE Comment: Protocol Order Physician Instructions: Greater than 3 points order PT Admission Screenin Reason For Exam: Triggered on Admission Diagnosis: Generalized weakness/fatigue Open Wound/Cellutlitis/Pressure Ulcers: Yes Acute Fx/ORIF/Change in wt bearing status: No Severe MUSCULOSKELETAL pain: No ADL Dysfunction: No Acute CVA w/Hemiparesis/Hemiplegia: No Decreased Functional Mobility/Strength: Yes Sprain/Strain: No Acute Post-op Mobility Dysfunction: No Total Points: 6 Discharge Exam General Appearance: no apparent distress, alert Neurologic Exam: alert, oriented x 3, cooperative, normal mood/affect, nml cerebellar function, sensation nml, No motor deficits Eye Exam: PERRL, EOMI, eyes nml inspection Ears, Nose, Throat Exam: normal ENT inspection, pharynx normal, moist mucous membranes Neck Exam: normal inspection, non-tender, supple, full range of motion Respiratory Exam: normal breath sounds, lungs clear, No respiratory distress Cardiovascular Exam: regular rate/rhythm, normal heart sounds Gastrointestinal/Abdomen Exam: soft, No tenderness, No mass Male Genitalia Exam: deferred Rectal Exam: deferred Back Exam: normal inspection, normal range of motion, No CVA tenderness, No vertebral tenderness Extremity Exam: normal inspection, normal range of motion Skin Exam: normal color, warm, dry Wound Assessment: Skin/Wound Assessment Wound/Incision Assessment Start: 09/13/24 00:17 Text: Status: Active Freq: Q6H Protocol: Document 09/13/24 00:00 KD (Rec: 09/13/24 02:51 KD [id number]) Wound/Incision Assessment Right 2nd finger Wound Assessment Admission Wound Type gangrene Wound Stage Non Pressure Wound Drainage Odor None/Absent General Appearance Open to air,Blackened Wound Bed Greatest Portion Black (Eschar) Surrounding Tissue T[place] Comment gangrene per pt, JENNYFER Wound Photo Photo Taken Yes Date: 09/12/24 Time: 23:15 Final Diagnosis/Problem List - Final Discharge Diagnosis/Problem (1) Fatigue Current Visit: Yes Status: Acute Assessment & Plan: - Unclear etiology. - Check TSH, A1c, AM cortisol - labs pending- F/U OP with PCP as pt is not willing to wait. - CPK- 24 - No recent med changes. Anemia is chronic and at baseline. No evidence of dehydration. - Check AM orthostatics- non-concerning - PT eval- if able - pt wants to d/c. May need to f/u OP with PCP for referral Code(s): R53.83 - OTHER FATIGUE (2) Anemia Current Visit: Yes Status: Chronic Assessment & Plan: - Follow counts. No indication for transfusion at this time. - Hemoglobin baseline is around 8. - Hgb 7.3- F/U OP tomorrow for 2 units of PRBC ordered by Dr. Thomas Code(s): D64.9 - ANEMIA, UNSPECIFIED (3) Chronic atrial fibrillation Current Visit: Yes Status: Acute Assessment & Plan: - Continue current regimen. Follows with Dr. Gilliland. Not in RVR. Rate controlled. Not likely the etiology of patient's fatigue. Code(s): I48.20 - CHRONIC ATRIAL FIBRILLATION, UNSPECIFIED (4) Chronic steroid use Current Visit: Yes Status: Chronic Assessment & Plan: -No recent change in prednisone. - However, the patient may have a component of adrenal insuffciency. - Will screen with a 7am timed cortisol. - If low, the patient would require an endocrinology referral for a miguel stim. 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 Guallpa in [place]. Code(s): C91.Z0 - OTHER LYMPHOID LEUKEMIA NOT HAVING ACHIEVED REMISSION (6) BMI 33.0-33.9,adult Current Visit: Yes Status: Chronic Assessment & Plan: - Advised diet and exercise control Code(s): Z68.33 - BODY MASS INDEX [BMI] 33.0-33.9, ADULT - Discharge Discharge Date: 09/13/24 Disposition: Home, Self-Care Condition: Stable Prescriptions: Continue Trazodone HCl 50 mg [Desyrel 50 mg] 50 mg PO HS Acetaminophen 325 mg [Tylenol 325 mg] 325 mg PO Q4HPRN PRN PRN Reason: Pain Folic Acid 1 mg [Folate 1 mg] 1 tab PO DAILY Digoxin 250 mcg PO DAILY Albuterol 2.5 mg/3 ml Neb [Proventil 2.5 mg/3 ml Neb] 1 dose IH Q8HPRN PRN PRN Reason: Shortness Of Breath Sucralfate 1 gm [Carafate 1 GM] 1 tab PO Q6H Leflunomide 20 mg PO DAILY Tizanidine HCl 4 mg [Zanaflex 4 MG] 1 tab PO DAILY PRN PRN Reason: MUSCLE PAIN Gabapentin [Neurontin ] 100 mg PO TID Ondansetron [Ondansetron Odt] 8 mg PO Q8HPRN PRN PRN Reason: Nausea Prednisone 5 mg [Deltasone 5 mg] 15 mg PO DAILY Pantoprazole 40 mg [Protonix 40 mg IV] 40 mg PO DAILY Cetirizine HCl [All Day Allergy Relief] 10 mg PO DAILY Hydrocodone/Acetaminophen [Hydrocodone-Acetamin 5-325 mg] 1 tab PO Q4HPRN PRN PRN Reason: Pain Apixaban [Eliquis] 5 mg PO BID Deferasirox 2,520 mg PO DAILY Escitalopram Oxalate [Lexapro] 10 mg PO DAILY Follow up with: RAHEEL TREJO MD [ACTIVE STAFF] -
[2024-09-13] MEDS ORDERED: Neurontin PO SCH (10:00)
[2024-09-13] MEDS ORDERED: LEFLUNOMIDE 10 MG PO SCH (10:00)
--- NOTE | 2024-09-13 13:37 | PCM.DCORD ---
- Discharge Discharge Date: 09/13/24 Disposition: Home, Self-Care Condition: Stable Prescriptions: Continue Trazodone HCl 50 mg [Desyrel 50 mg] 50 mg PO HS Acetaminophen 325 mg [Tylenol 325 mg] 325 mg PO Q4HPRN PRN PRN Reason: Pain Folic Acid 1 mg [Folate 1 mg] 1 tab PO DAILY Digoxin 250 mcg PO DAILY Albuterol 2.5 mg/3 ml Neb [Proventil 2.5 mg/3 ml Neb] 1 dose IH Q8HPRN PRN PRN Reason: Shortness Of Breath Sucralfate 1 gm [Carafate 1 GM] 1 tab PO Q6H Leflunomide 20 mg PO DAILY Tizanidine HCl 4 mg [Zanaflex 4 MG] 1 tab PO DAILY PRN PRN Reason: MUSCLE PAIN Gabapentin [Neurontin ] 100 mg PO TID Ondansetron [Ondansetron Odt] 8 mg PO Q8HPRN PRN PRN Reason: Nausea Prednisone 5 mg [Deltasone 5 mg] 15 mg PO DAILY Pantoprazole 40 mg [Protonix 40 mg IV] 40 mg PO DAILY Cetirizine HCl [All Day Allergy Relief] 10 mg PO DAILY Hydrocodone/Acetaminophen [Hydrocodone-Acetamin 5-325 mg] 1 tab PO Q4HPRN PRN PRN Reason: Pain Apixaban [Eliquis] 5 mg PO BID Deferasirox 2,520 mg PO DAILY Escitalopram Oxalate [Lexapro] 10 mg PO DAILY Additional Instructions: AFTER YOUR APPOINTMENT WITH ORTHO- GO TO HOSPITAL REGISTRATION TO REGISTER AND GET LABWORK DONE FOR YOUR INFUSION 09/14 YOU INFUSION IS SCHEDULED 09/14 AT 0800 KEEP RED BLOOD ID BAND IN PLACE UNTIL AFTER OUR INFUSION 09/14 Follow up with: GALLO DORSEY MD [Primary Care Provider] - 09/19/24 9:40 am
[2024-09-13] MEDS ORDERED: DESYREL 50 MG PO SCH (22:00)
== END 2024-09-13 10:19 | disposition home or self-care (01) ==
LOC: ED 18:51 → MED SURG 22:49
PROVIDERS: ADMIT Internal Medicine; ATTEND Internal Medicine
DX: R53.83 Other fatigue (principal); D64.9 Anemia, unspecified; I48.20 Chronic atrial fibrillation, unspecified; Z79.899 Other long term (current) drug therapy; C91.Z0 Other lymphoid leukemia not having achieved remission; Z68.33 Body mass index [BMI] 33.0-33.9, adult; Z79.01 Long term (current) use of anticoagulants
CPT/HCPCS: 36415; 71045; 80048; 80053; 80162; 80307; 82533; 82550; 83036; 83735; 83880; 84134; 84443; 84484; 85025; 93005; 93041; 93268; 94660; 94760; 99285; G0378; Q3014; 99283; A9270-GY